=== PATIENT | female | born 1945 | race Caucasian/White ===

== ENCOUNTER 2020-12-06 12:49 | Outpatient (CLI) | payer MEDICARE, BC ==
[2020-12-06 19:55] LABS: BASOPHILS % (AUTO) 0.7 %; EOSINOPHILS # (AUTO) 0.2 10^3/uL (0.0-0.7); EOSINOPHILS % (AUTO) 3.2 %; HCT - HEMATOCRIT 44.9 % (37.0-47.0); HGB - HEMOGLOBIN 15.2 g/dL (12.0-16.0); LYMPHOCYTES # (AUTO) 1.7 10^3/uL (1.5-3.5); LYMPHOCYTES % (AUTO) 29.3 %; MEAN CORPUSCULAR HEMOGLOBIN 32.3 pg (27.0-31.0); MEAN CORPUSCULAR HGB CONC 33.9 g/dL (32.0-36.0); MEAN CORPUSCULAR VOLUME 95.3 fL (81.0-99.0); MEAN PLATELET VOLUME 9.8 fL (7.9-10.8); MONOCYTES # (AUTO) 0.5 10^3/uL (0.0-1.0); MONOCYTES % (AUTO) 9.3 %; NEUTROPHILS # (AUTO) 3.2 10^3/uL (1.5-6.6); NEUTROPHILS % (AUTO) 57.1 %; PLT - PLATELET COUNT 303 10^3/uL (130-450); RED BLOOD COUNT 4.71 10^6/uL (4.20-5.40); RED CELL DISTRIBUTION WIDTH 12.8 % (12.0-15.0); WHITE BLOOD COUNT 5.7 x10^3/uL (4.8-10.8)
[2020-12-06 20:11] LABS: ALBUMIN 4.3 g/dL (3.2-5.5); ALBUMIN/GLOBULIN RATIO 1.7 (1.0-2.2); ALKALINE PHOSPHATASE 60 IU/L (42-121); ALT ALANINE AMINOTRANSFERASE 23 IU/L (10-60); AST ASPARTATE AMINOTRANSFERASE 22 IU/L (10-42); BILIRUBIN,TOTAL 1.4 mg/dL (0.2-1.0); BUN - BLOOD UREA NITROGEN 21 mg/dL (6-20); CALCIUM 9.5 mg/dL (8.5-10.3); CARBON DIOXIDE - CO2 28 mmol/L (21-32); CHLORIDE 99 mmol/L (101-111); CHOL/HDL RATIO 4.7 (<4.4); CHOLESTEROL 260 mg/dL; CREATININE 0.5 mg/dL (0.4-1.0); GFR - MDRD 121 (>89); GLUCOSE 104 mg/dL (70-100); HDL CHOLESTEROL 55 mg/dL; LDL CHOLESTEROL,CALCULATED 177 mg/dL; LDL/HDL RATIO 3.2 (<4.4); POTASSIUM 3.6 mmol/L (3.5-5.0); SODIUM 136 mmol/L (135-145); TOTAL PROTEIN 6.9 g/dL (6.7-8.2); TRIGLYCERIDES 140 mg/dL; VLDL CHOLESTEROL 28 mg/dL
[2020-12-06 20:23] LABS: THYROID STIMULATING HORMONE 0.49 uIU/mL (0.34-5.60)
== END 2020-12-06 12:50 | disposition home or self-care (01) ==
LOC: LAB.S 12:49
PROVIDERS: ATTEND Nurse Practitioner Family
DX: I10 Essential (primary) hypertension (principal); E78.5 Hyperlipidemia, unspecified; Z11.59 Encounter for screening for other viral diseases; Z11.4 Encounter for screening for human immunodeficiency virus [HIV]
CPT/HCPCS: 36415; 80053; 80061; 83721; 84443; 85025; 87389; 87522

== ENCOUNTER 2021-02-22 14:31 | Outpatient (CLI) | payer MEDICARE, BC ==
--- NOTE | 2021-02-25 09:19 | Mammography Report ---
BILATERAL DIGITAL SCREENING MAMMOGRAM 3D/2D: 02/22/2021 CLINICAL: Routine screening. Personal history of left breast cancer. Comparison is made to exams dated: 01/24/2020 mammogram, 11/29/2018 mammogram, 11/25/2017 mammogram, 10/30 mammogram, 08/07/2015 mammogram, and 08/02/2014 mammogram - [facility]. T here are scattered fibroglandular elements in both breasts. There is a benign calcification in the left breast. There also are benign post operative findings in the left breast. No significant masses, calcifications, or other findings are seen in either breast. There has been no significant interval change. IMPRESSION: BENIGN There is no mammographic evidence of malignancy. A 1 year screening mammogram is recommended. This exam was interpreted at Station ID: [id number]. NOTE: For mammograms, a report in lay terms will be sent to the patient. Approximately 15% of breast malignancies will not be visualized mammographically. In the management of a palpable breast mass, a negative mammogram must not discourage biopsy of a clinically suspicious lesion. Electronically Signed By: Alessandro Aleman M.D. ddp/penrad:02/22/2021 17:01:55 ACR BI-RADS Category 2: Benign Finding(s) 3342F PARENCHYMAL PATTERN: (A) - The breast(s) demonstrate(s) scattered fibroglandular densities. BI-RADS CATEGORY: (2) - 2 RECOMMENDATION: (ANNUAL) - Recommend routine annual screening mammography. [id number] 1 year screening LATERALITY: (B)
== END 2021-02-22 14:32 | disposition home or self-care (01) ==
LOC: DI 14:31
DX: Z12.31 Encounter for screening mammogram for malignant neoplasm of breast (principal); Z85.3 Personal history of malignant neoplasm of breast

== ENCOUNTER 2021-02-22 14:32 | Outpatient (CLI) | payer MEDICARE, BC ==
--- NOTE | 2021-02-22 17:04 | DEXA Report ---
PROCEDURE: Dexa Spine and/or Hip INDICATIONS: ROUTINE MAMMO TECHNIQUE: Dual energy x-ray absorptiometry (DXA) was performed on a [employer] System. Regions measur ed are the AP Spine, femoral neck, and if needed forearm. Bilateral hip arthroplasties are present. COMPARISON: None. FINDINGS: Lumbar Spine: Bone Mineral Density 1.191 g/cm/cm,T score 0.1, normal Left forearm: Bone Mineral Density 0.623 g/cm/cm, T score -0.8, normal (T score greater or equal to -1.0: NORMAL) (T score from -1.1 to -2.4: OSTEOPENIA) (T score less than or equal to -2.5 to: OSTEOPOROSIS) Impression: Normal bone mineral density. Patients with diagnosis of osteoporosis or osteopenia should have regular bone mineral density assess ment. For those eligible for Medicare, routine testing is allowed once every 2 years. Testing frequ ency can be increased for patients who have rapidly progressing disease or for those who are receivin g medical therapy to restore bone mass. Reviewed by: Rafaela Serrato MD on 02/22/2021 5:03 PM PDT Approved by: Rafaela Serrato MD on 02/22/2021 5:03 PM PDT Station ID: [id number]
== END 2021-02-22 14:33 | disposition home or self-care (01) ==
LOC: DI 14:32
PROVIDERS: ATTEND Nurse Practitioner Family
DX: Z78.0 Asymptomatic menopausal state (principal); Z96.643 Presence of artificial hip joint, bilateral

== ENCOUNTER 2021-04-05 08:32 | Day surgery (SDC) | payer MEDICARE, BC ==
[2021-04-05] MEDS ORDERED: LACTATED RINGERS 1,000 ML IV ONE ×2 (08:59→11:58)
--- NOTE | 2021-04-05 09:09 | ANESTHESIA ---
Pre-Anesthesia VS, & Labs - Diagnosis hx of colon polyps - Procedure colonoscopy Vital Signs: Temp Pulse Resp BP Pulse Ox 36.9 C 61 12 149/86 H 97 04/05/21 08:49 04/05/21 08:49 04/05/21 08:49 04/05/21 08:49 04/05/21 08:49 Height: 5 ft 7 in Weight (kg): 72 kg Body Mass Index: 24.8 BMI Classification: Healthy weight - NPO >8 hours - Is Patient ?: No - Lab Results Lab results reviewed: Yes Home Medications and Allergies Home Medications: Ambulatory Orders Atenolol [Tenormin] 25 mg PO DAILY 04/05/21 Losartan [Cozaar] 100 mg PO DAILY 12/01/13 hydroCHLOROthiazide [Hydrochlorothiazide] 25 mg PO DAILY 12/01/13 Atenolol [Tenormin] 25 mg PO DAILY 04/05/21 Allergies/Adverse Reactions: Allergies Allergy/AdvReac Type Severity Reaction Status Date / Time No Known Drug Allergies Allergy Verified 12/01/13 13:52 Anes History & Medical History - Anesthetic History Anesthesia Complications: reports: No previous complications Family history of Anesthesia Complications: Denies Family history of Malignant Hyperthermia: Denies - Medical History Cardiovascular: reports: Hypertension Smoking Status: Never smoker - Surgical History Orthopedic: reports: Hip replacement Exam General: Alert, Oriented x3, Cooperative, No acute distress Dental: WNL Mouth Openin Fingerbreadth Neck Mobility: Normal Mallampati classification: II Respiratory: Lungs clear, Normal breath sounds, No respiratory distress, No accessory muscle use Cardiovascular: Regular rate, Normal S1, Normal S2, No murmurs Plan Anesthesia Type: General, Total IV Consent for Procedure(s) Verified and Reviewed: Yes Code Status: Attempt Resuscitation ASA classification: 2-Mild systemic disease Is this case an emergency?: No
[2021-04-05] MEDS ORDERED: MIDAZOLAM 2 MG/2 ML VIAL ONE (10:53)
[2021-04-05] MEDS ORDERED: PROPOFOL 200 MG/20 ML VIAL IVP ONE ×2 (10:54→11:44)
[2021-04-05] MEDS ORDERED: fentaNYL 100 MCG/2 ML VIAL ONE (10:54)
--- NOTE | 2021-04-05 11:01 | HISTORY & PHYSICAL EXAMINATION ---
Chief Complaint - Chief Complaint Chief Complaint: history of colon polyps History of Present Illness - History Obtained From Records Reviewed: yes History obtained from: pt Exam Limitations: none - History of Present Illness HPI Comment/Other: Here for colon cancer surveillance. History polyp many years ago. History - Past Medical History Cardiovascular: reports: Hypertension MRSA Hx?: No - Past Surgical History Ortho: reports: Hip replacement Meds/Allgy - Home Medications Home Medications: Ambulatory Orders Medication Instructions Recorded Confirmed Losartan [Cozaar] 100 mg PO DAILY 12/01/13 04/05/21 hydroCHLOROthiazide 25 mg PO DAILY 12/01/13 04/05/21 [Hydrochlorothiazide] Atenolol [Tenormin] 25 mg PO DAILY 04/05/21 04/05/21 - Allergies Allergies/Adverse Reactions: Allergies Allergy/AdvReac Type Severity Reaction Status Date / Time No Known Drug Allergies Allergy Verified 12/01/13 13:52 Review of Systems - Other Findings Other Findings: 10 pt ros as above otherwise unremarkable Exam - Vital Signs Reviewed Vital Signs: Yes Vital Signs: Vital Signs x48h Temp Pulse Resp BP Pulse Ox 04/05/21 08:49 36.9 C 61 12 149/86 H 97 - Physical Exam General Appearance: positive: No acute distress, Alert Eyes Bilateral: positive: PERRL, EOMI, No scleral icterus ENT: positive: No signs of dehydration Neck: positive: No JVD Respiratory: positive: No respiratory distress, Breath sounds nml Cardiovascular: positive: Regular rate & rhythm Abdomen: positive: Non-tender, No distention Conclusion/Plan - Problem List (1) History of adenomatous polyp of colon Conclusion/Plan: plan surveillance colonoscopy. parq held and consent obtained - Lab Results Lab results reviewed: Yes
[2021-04-05 12:16] VITALS: BP 100/80
--- NOTE | 2021-04-05 16:00 | ANESTHESIA POST OP EVALUATION ---
Anesthesia Post Eval - Post Anesthesia Eval Vitals: Last Vital Signs Temp 37 C 04/05/21 12:01 Pulse 68 04/05/21 12:16 Resp 12 04/05/21 12:16 BP 100/80 04/05/21 12:16 Pulse Ox 100 04/05/21 12:16 CV Function Including HR & BP: Stable Pain Control: Satisfactory Nausea & Vomiting: Negative Mental Status: Baseline Respiratory Status: Airway Patent Hydration Status: Satisfactory Anesthesia Complications: None
== END 2021-04-05 08:33 | disposition home or self-care (01) ==
LOC: SDS 08:32
PROVIDERS: ATTEND Surgery
PROC: 0DBM8ZX Excision of Descending Colon, Via Natural or Artificial Opening Endoscopic, Diagnostic (ICD-10-PCS; principal; 2021-04-05 10:15)
DX: Z12.11 Encounter for screening for malignant neoplasm of colon (principal); K52.9 Noninfective gastroenteritis and colitis, unspecified; I10 Essential (primary) hypertension; Z86.010 Personal history of colon polyps; Z96.649 Presence of unspecified artificial hip joint
CPT/HCPCS: 45380; J7120

== ENCOUNTER 2022-03-26 10:45 | Outpatient (CLI) | payer MEDICARE, BC ==
--- NOTE | 2022-03-27 12:52 | Mammography Report ---
BILATERAL DIGITAL SCREENING MAMMOGRAM 3D/2D WITH EXAGGERATED CC: 03/26/2022 CLINICAL: Routine screening. Routine screening. Personal history of left breast cancer. Comparison is made to exams dated: 02/22/2021 mammogram - [facility], 01/24/2020 [facility] mogram, 11/29/2018 mammogram, 11/25/2017 mammogram, 11/11/2016 mammogram, and 08/07/2015 mammogram - [facility]. There are scattered areas of fibroglandular density in both breasts (category b / 25%-50% glandular t issue). There is a benign calcification in the left breast. There also are benign post operative findings in the left breast. No significant masses, calcifications, or other findings are seen in either breast. There has been no significant interval change. IMPRESSION: BENIGN There is no mammographic evidence of malignancy. A 1 year screening mammogram is recommended. This exam was interpreted at Station ID: [id number]. NOTE: For mammograms, a report in lay terms will be sent to the patient. Approximately 15% of breast malignancies will not be visualized mammographically. In the management of a palpable breast mass, a negative mammogram must not discourage biopsy of a clinically suspicious lesion. Electronically Signed By: Dylan Sears M.D., jr/audi:03/26/2022 15:17:53 ACR BI-RADS Category 2: Benign Finding(s) 3342F PARENCHYMAL PATTERN: (A) - The breast(s) demonstrate(s) scattered fibroglandular densities. BI-RADS CATEGORY: (2) - 2 RECOMMENDATION: (ANNUAL) - Recommend routine annual screening mammography. [id number] 1 year screening LATERALITY: (B)
== END 2022-03-26 10:46 | disposition home or self-care (01) ==
LOC: DI.S 10:45
PROVIDERS: ATTEND Nurse Practitioner Family
DX: Z12.31 Encounter for screening mammogram for malignant neoplasm of breast (principal); Z85.3 Personal history of malignant neoplasm of breast

== ENCOUNTER 2023-03-30 12:38 | Outpatient (CLI) | payer MEDICARE ==
--- NOTE | 2023-03-30 14:14 | Ultrasound Report ---
PROCEDURE: Head or Neck Soft Tissue INDICATIONS: THYROID NODULE TECHNIQUE: Real-time scanning was performed of the thyroid gland, with image documentation. COMPARISON: None FINDINGS: Right: Thyroid lobe measures 5.2 x 1.7 x 1.8 cm, and is homogeneous in echotexture. Left: Thyroid lobe measures 5.0 x 2.1 x 2.2 cm, and is homogenous in echotexture. Isthmus: 3 mm thick. Nodule number: One Location: Right lateral Size: 0.9 x 0.4 x 0.7 cm. Composition: Predominantly cystic. Echogenicity: Hyperechoic. Shape: wider than tall (0 points).. Margins: Smooth (0 points). Echogenic foci: Macroscopic calcifications. Total points: 3 ACR TI-RADS category: 3 Nodule number: Two Location: Right mid Size: 0.4 x 0.4 x 0.3 cm. Composition: Predominantly cystic. Echogenicity: Hypoechoic. Shape: wider than tall (0 points).. Margins: Smooth (0 points). Echogenic foci: None (0 points). Total points: 3 ACR TI-RADS category: 3 Nodule number: Three Location: Left mid Size: 2.2 x 1.6 x 1.6 cm. Composition: Spongiform. Echogenicity: Hypoechoic. Shape: wider than tall (0 points).. Margins: Smooth (0 points). Echogenic foci: None (0 points). Total points: 2 ACR TI-RADS category: 2 Nodule number: Four Location: Left upper Size: 0.6 x 0.4 x 0.8 cm. Composition: Predominantly solid. Echogenicity: Isoechoic. Shape: wider than tall (0 points). Margins: Smooth (0 points). Echogenic foci: None (0 points). Total points: 3 ACR TI-RADS category: 3 IMPRESSION: Bilateral thyroid nodules as above. Best practice guidelines suggest no follow-up is necessary ACR TI-RADS definitions and recommendations: TI-RADS 1 (benign): 0 points. FNA not needed. TI-RADS 2 (not suspicious): 2 points. FNA not needed. TI-RADS 3 (mildly suspicious): 3 points. "FNA if 2.5 cm or larger, follow up if 1.5 cm or larger (at 1, 3, and 5 years). TI-RADS 4 (moderately suspicious): 4-6 points. "FNA if 1.5 cm or larger, follow up if 1 cm or larger (at 1, 2, 3, and 5 years). TI-RADS 5 (highly suspicious): 7 points or more. "FNA if 1 cm or larger, follow up if 0.5 cm or larger (every year for 5 years). Reviewed by: Brandon Torres MD on 03/30/2023 1:13 PM MATT Approved by: Brandon Torres MD on 03/30/2023 1:13 PM MATT Station ID: [id number]
== END 2023-03-30 12:39 | disposition home or self-care (01) ==
LOC: DI 12:38
PROVIDERS: ATTEND Internal Medicine
DX: E04.2 Nontoxic multinodular goiter (principal)

== ENCOUNTER 2023-03-30 12:39 | Outpatient (CLI) | payer MEDICARE ==
--- NOTE | 2023-03-31 15:06 | Mammography Report ---
BILATERAL DIGITAL SCREENING MAMMOGRAM 3D/2D: 03/30/2023 CLINICAL: Routine screening. Personal history of left breast cancer. Comparison is made to exams dated: 03/26/2022 mammogram, 02/22/2021 mammogram - [facility], 01/24/2020 mammogram, 11/29/2018 mammogram, and 11/25/2017 mammogram - [facility]. There are scattered areas of fibroglandular density in both breasts (category b / 25%-50% glandular t issue). There are benign post operative findings in the left breast. No significant masses, calcifications, or other findings are seen in either breast. IMPRESSION: BENIGN There is no mammographic evidence of malignancy. A 1 year screening mammogram is recommended. This exam was interpreted at Station ID: [id number]. NOTE: For mammograms, a report in lay terms will be sent to the patient. Approximately 15% of breast malignancies will not be visualized mammographically. In the management of a palpable breast mass, a negative mammogram must not discourage biopsy of a clinically suspicious lesion. Electronically Signed By: Latosha Marlow M.D., PH.D eb/penrad:03/30/2023 19:54:46 letter sent: No_Letter ACR BI-RADS Category 2: Benign Finding(s) 3342F PARENCHYMAL PATTERN: (A) - The breast(s) demonstrate(s) scattered fibroglandular densities. BI-RADS CATEGORY: (2) - 2 Mammogram [id number] 1 year screening LATERALITY: (B)
== END 2023-03-30 12:40 | disposition home or self-care (01) ==
LOC: DI 12:39
PROVIDERS: ATTEND Physician Assistant
DX: Z12.31 Encounter for screening mammogram for malignant neoplasm of breast (principal); R92.323 Mammographic fibroglandular density, bilateral breasts